=== PATIENT | male | born 1980 | race Caucasian/White ===

== ENCOUNTER 2019-02-07 06:02 | Day surgery (SDC) | payer OTHER ==
[2019-02-07] MEDS ORDERED: CEFAZOLIN 2 GM/50 ML (PMX) 50 ML IVPB (07:00)
[2019-02-07] MEDS: POLYMYXIN/BACITRACIN 1L IRRIG IRR (07:25)
[2019-02-07] MEDS ORDERED: MEPERIDINE 25 MG INJ IV (07:30)
[2019-02-07] MEDS ORDERED: ONDANSETRON 4 MG INJ IV (07:30)
[2019-02-07] MEDS ORDERED: CEFAZOLIN 1 GM INJ (07:30)
[2019-02-07] MEDS ORDERED: OXYCODONE/ACETAMINOPHEN (5/325) TAB PO ×2 (07:30)
[2019-02-07] MEDS ORDERED: FENTAnyl 50 MCG/ML VIAL IV ×3 (07:30)
[2019-02-07] MEDS ORDERED: HYDROmorphONE 1 MG/5 ML IV SYRINGE IV (07:30)
[2019-02-07] MEDS ORDERED: DIPHENHYDRAMINE 50 MG INJ IV (07:30)
[2019-02-07] MEDS ORDERED: KETOROLAC 30 MG INJ IV (07:30)
[2019-02-07] MEDS ORDERED: ONDANSETRON 4 MG INJ (07:31)
[2019-02-07] MEDS ORDERED: PROPOFOL 20 ML (07:31)
[2019-02-07] MEDS ORDERED: MIDAZOLAM 1 MG/ML 2 ML INJ (07:31)
[2019-02-07] MEDS ORDERED: ROPIVACAINE 0.5 % 30 ML VIAL (07:32)
[2019-02-07] MEDS ORDERED: KETOROLAC 30 MG INJ (07:32)
[2019-02-07] MEDS ORDERED: METOCLOPRAMIDE 10 MG INJ (07:32)
[2019-02-07] MEDS ORDERED: FENTAnyl 50 MCG/ML VIAL (07:51)
[2019-02-07] MEDS: LACTATED RINGER'S 1,000 ML IV (10:33)
== END 2019-02-07 11:40 | disposition home or self-care (01) ==
LOC: SDS 06:02
DX: S82.62XG Displaced fracture of lateral malleolus of left fibula, subsequent encounter for closed fracture with delayed healing (principal); X58.XXXD Exposure to other specified factors, subsequent encounter
CPT/HCPCS: 27792; 73610